=== PATIENT | male | born 1950 | race Caucasian/White ===

== ENCOUNTER 2019-12-02 11:31 | Outpatient (CLI) | payer BC ==
--- NOTE | 2019-12-02 12:00 | RAD ---
XR Chest Pa Lat @ [facility] HISTORY: Dyspnea COMPARISON: None FINDINGS: The heart size is normal. The lungs are well expanded without focal areas of consolidation, pneumothorax or pleural effusions. There are degenerative changes in the spine. IMPRESSION: No radiographic evidence of acute cardiopulmonary process.
== END 2019-12-02 11:32 | disposition home or self-care (01) ==
LOC: RAD 11:31
PROVIDERS: ATTEND Internal Medicine Critical Care Medicine
DX: R06.00 Dyspnea, unspecified (principal)
CPT/HCPCS: 71046